=== PATIENT | female | born 1945 | race Caucasian/White ===

== ENCOUNTER 2024-03-16 09:32 | Outpatient (CLI) | payer MEDICARE, BC | END 2024-03-16 09:33 | disposition home or self-care (01) | LOC: CSHULT 09:32 | PROVIDERS: ATTEND Nurse Practitioner Family | DX: R74.8 Abnormal levels of other serum enzymes (principal); R11.0 Nausea; M54.9 Dorsalgia, unspecified; M54.89 Other dorsalgia | CPT/HCPCS: 76700; 76705 ==